=== PATIENT | female | born 1985 | race Caucasian/White ===

== ENCOUNTER → 2023-07-02 | Outpatient (CLI) | payer OTHER ==
--- NOTE | 2023-07-02 11:26 | XR ---
EXAMINATION TYPE: XR chest 2V DATE OF EXAM: 07/02/2023 11:21 AM COMPARISON: CT chest abdomen pelvis 02/17/2015 TECHNIQUE: XR chest 2V Frontal and lateral views of the chest. CLINICAL INDICATION:Female, 38 years old with history of S.O.B.; FINDINGS: Lungs/Pleura: There is no evidence of pleural effusion, focal consolidation, or pneumothorax. Pulmonary vascularity: Unremarkable. Heart/mediastinum: Cardiomediastinal silhouette is unremarkable. Musculoskeletal: No acute osseous pathology. IMPRESSION: No acute cardiopulmonary disease/process.
[2023-07-02 16:34] LABS: % Iron Saturation 49.65 (12.00-45.00); ALT 12 U/L (8-44); AST 14 U/L (13-35); Albumin 4.6 d/dL (3.8-4.9); Albumin/Globulin Ratio 2.09 Ratio (1.60-3.17); Alkaline Phosphatase 58 U/L (41-126); Blood Urea Nitrogen 13.7 mg/dL (9.0-27.0); C Reactive Protein <0.30 mg/dL (0.00-0.80); Calcium 9.6 mg/dL (8.7-10.3); Carbon Dioxide 24.7 mmol/L (21.6-31.8); Chloride 104 mmol/L (96-109); Chol/HDL Ratio 2.35 Ratio; Creatine Kinase 50 U/L (26-186); Ferritin 77.1 ng/mL (10.0-291.0); Globulin 2.2 d/dL (1.6-3.3); Glucose 86 mg/dL (70-110); Iron 143 UG/DL (50-170); LDL Cholesterol,Calculated 82.1 mg/dL (0.0-131.0); Magnesium 2.1 mg/dL (1.5-2.4); Phosphorus 3.2 mg/dL (2.4-5.1); Potassium 4.7 mmol/L (3.5-5.5); Sodium 139 mmol/L (135-145); T4, Free (Free Thyroxine) 1.36 ng/dL (0.80-1.80); Total Bilirubin 0.9 mg/dL (0.3-1.2); Total Iron Binding Capacity 288 UG/DL (228-460); Total Protein 6.8 d/dL (6.2-8.2); Uric Acid 3.9 mg/dL (2.9-7.7); VLDL Calculation 7.36 mg/dL (5.00-40.00)
[2023-07-02 17:13] LABS: Basophils # (A) 0.03 X 10*3/uL (0.00-0.10); Basophils % (A) 0.5 %; Eosinophils # (A) 0.12 X 10*3/uL (0.04-0.35); Eosinophils % (A) 2.1 %; HCT 45.5 % (37.2-46.3); HGB 15.3 d/dL (12.0-15.0); Lymphocytes # (A) 1.47 X 10*3/uL (0.90-5.00); Lymphocytes % (A) 25.2 %; MCH 32.1 pg (27.0-32.0); MCHC 33.6 d/dL (32.0-37.0); MCV 95.6 FL (80.0-97.0); Monocytes # (A) 0.53 X 10*3/uL (0.20-1.00); Monocytes % (A) 9.1 %; NRBC Per 100 WBC 0 X 10*3/uL (0.00-0.01); Neutrophils # (A) 3.66 X 10*3/uL (1.80-7.70); Neutrophils % (A) 62.8 %; Platelet Count 296 X 10*3/uL (140-440); RBC 4.76 X 10*6/uL (4.10-5.20); RDW 12.6 % (11.5-14.5); WBC 5.83 X 10*3/uL (4.50-10.00)
[2023-07-02 17:38] LABS: Erythrocyte Sedimentation Rate 5 mm/Hr (0-20)
[2023-07-02 18:39] LABS: Thyroid Peroxidase Antibodies <9.0 U/mL (0.0-33.0)
== END | disposition home or self-care (01) ==
LOC: LABWHC1 10:57
PROVIDERS: ATTEND Internal Medicine
DX: Z00.00 Encounter for general adult medical examination without abnormal findings (principal); D64.9 Anemia, unspecified; J44.9 Chronic obstructive pulmonary disease, unspecified; E78.5 Hyperlipidemia, unspecified; E03.9 Hypothyroidism, unspecified; E55.9 Vitamin D deficiency, unspecified; R06.02 Shortness of breath
CPT/HCPCS: 36415; 71046; 80053; 80061; 82306; 82550; 82728; 83540; 83550; 83735; 84100; 84432; 84439; 84443; 84550; 85025; 85652; 86140; 86376

== ENCOUNTER 2024-07-30 10:16 | Emergency (ER) | payer BC, OTHER ==
[2024-07-30] MEDS: PROPARACAINE 0.5% OPHTH DROPS 15 ML BTL RIGHT EYE STA (11:00)
[2024-07-30] MEDS: FLUORESCEIN STRIPS 1 MG STRIP RIGHT EYE ONE (11:00)
[2024-07-30] MEDS: TOBRAMYCIN 0.3% OPHTH DROPS 5 ML BTL RIGHT EYE STA (11:45)
--- NOTE | 2024-07-30 12:01 | ED ---
Eye Problem HPI - General Chief complaint: Eye Problems Stated complaint: Eye issues Time Seen by Provider: 07/30/24 11:30 Source: patient, RN notes reviewed Mode of arrival: ambulatory Limitations: no limitations - History of Present Illness Initial comments: 39-year-old female presenting to the ER with a chief complaint of right vision defects. Patient states this morning she went to put in her contacts and started to see a haziness over her right eye. She attempted to take out her contact and rinse her eye with saline and water. She states afterwards in her eye that haziness was worse. She does report during irrigating her eyes there was a burning sensation and feels as if there is a foreign body in her right eye. 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 She denies any known injuries or traumas. No other injuries or complaints. - Related Data Home Medications Medication Instructions Recorded Confirmed Cephalexin [Keflex] 500 mg PO TID 05/20/16 05/20/16 Pnv,Calcium 72/Iron/Folic Acid 1 tab PO DAILY 05/20/16 05/20/16 [ Plus Tablet] Previous Rx's Medication Instructions Recorded Acetaminophen-Codeine 300-30mg 2 tab PO Q6H PRN #30 tablet 05/22/16 [Tylenol #3] Allergies Allergy/AdvReac Type Severity Reaction Status Date / Time No Known Allergies Allergy Verified 07/30/24 10:32 Review of Systems ROS Statement: Those systems with pertinent positive or pertinent negative responses have been documented in the HPI. ROS Other: All systems not noted in ROS Statement are negative. Past Medical History Past Medical History: No Reported History History of Any Multi-Drug Resistant Organisms: None Reported Past Surgical History: No Surgical Hx Reported Past Anesthesia/Blood Transfusion Reactions: No Reported Reaction Past Psychological History: ADD/ADHD Past Alcohol Use History: Occasional Past Drug Use History: None Reported - Past Family History Father Family Medical History: Hyperlipidemia, Hypertension Mother Family Medical History: COPD, Deep Vein Thrombosis (DVT), Hyperlipidemia, Hypertension General Exam Limitations: no limitations General appearance: alert, in no apparent distress Head exam: Present: atraumatic, normocephalic, normal inspection Eye exam: Present: normal appearance, PERRL, EOMI, conjunctival injection (right. There is an abnormality to cornea seen. Abrasion noted during fluorescein stain. OD IOP 14.). Absent: scleral icterus, periorbital swelling Pupils: Present: normal accommodation ENT exam: Present: normal exam, mucous membranes moist Respiratory exam: Present: normal lung sounds bilaterally. Absent: respiratory distress, wheezes, rales, rhonchi, stridor Cardiovascular Exam: Present: regular rate, normal rhythm, normal heart sounds. Absent: systolic murmur, diastolic murmur, rubs, gallop, clicks Neurological exam: Present: alert, oriented X3, CN II-XII intact Skin exam: Present: warm, dry, intact, normal color. Absent: rash Course Vital Signs 07/30/24 07/30/24 10:29 12:07 Temperature 98 F 98.0 F Pulse Rate 91 86 Respiratory 16 18 Rate Blood Pressure 118/78 120/76 O2 Sat by Pulse 98 98 Oximetry Medical Decision Making - Medical Decision Making Was pt. sent in by a medical professional or institution (SINTIA Frausto, SALES VICE PRESIDENT, urgent care, hospital, or custodial...) When possible be specific @ -No Did you speak to anyone other than the patient for history (EMS, parent, family, police, friend...)? What history was obtained from this source @ -No Did you review nursing and triage notes (agree or disagree)? Why? @ -I reviewed and agree with nursing and triage notes Were old charts reviewed (outside hosp., previous admission, EMS record, old EKG, old radiological studies, urgent care reports/EKG's, custodial records)? Report findings @ -No old charts were reviewed Differential Diagnosis (chest pain, altered mental status, abdominal pain women, abdominal pain men, vaginal bleeding, weakness, fever, dyspnea, syncope, headache, dizziness, GI bleed, back pain, seizure, CVA, palpatations, mental health, musculoskeletal)? @ -Corneal abrasion, ocular foreign body, hyphema, conjunctivitis, globe rupture, acute angle-closure glaucoma this list is not meant to be all-inclusive EKG interpreted by me (3pts min.). @ -None X-rays interpreted by me (1pt min.). @ -None done CT interpreted by me (1pt min.). @ -None done U/S interpreted by me (1pt. min.). @ -None done What testing was considered but not performed or refused? (CT, X-rays, U/S, labs)? Why? @ -None What meds were considered but not given or refused? Why? @ -None Did you discuss the management of the patient with other professionals (professionals i.e. , PA, SALES VICE PRESIDENT, lab, RT, psych nurse, social and political studies professor, electrical tech/project manager, teacher, life science technical officer, community case manager)? Give summary @ -No Was smoking cessation discussed for >3mins.? @ -No Was critical care preformed (if so, how long)? @ -No Were there social determinants of health that impacted care today? How? (Homelessness, low income, unemployed, alcoholism, drug addiction, transportation, low edu. Level, literacy, decrease access to med. care, group home, rehab)? @ -No Was there de-escalation of care discussed even if they declined (Discuss DNR or withdrawal of care, Hospice)? DNR status @ -No What co-morbidities impacted this encounter? (DM, HTN, Smoking, COPD, CAD, Cancer, CVA, ARF, Chemo, Hep., AIDS, mental health diagnosis, sleep apnea, morbid obesity)? @ -None Was patient admitted / discharged? Hospital course, mention meds given and route, prescriptions, significant lab abnormalities, going to OR and other pertinent info. @ -Discharge. 39 year old female presenting to the ER with a chief complaint of right eye irritation. History and physical exam completed. Vitals stable. Pat ient in no signs of acute distress but is tearful and anxious on exam. Patient does report she is blind in her left eye. Exam remarkable for right conjunctival injection with an abnormality seen over cornea. No foreign body noted on lid eversion. Fluorescein stain showing corneal abrasion. OD IOP 14. OD visual acuity 20/200. Decreased visual acuity believed to be due to corneal abrasion as it is large involving lateral aspect of pupil. Patient will be started on Tobrex eyedrops. Instructed her to place 2 drops in right eye every 6 hours for 5 days. Tetanus is up-to-date, per patient. I advised her to not wear contact lenses until abrasion heals. I also advise close follow-up with ophthalmology, referral given. Strict return parameters discussed. Patient discharged in stable condition. Patient verbally expressed understanding and agreement with care plan. Case with ED attending . Undiagnosed new problem with uncertain prognosis? @ -No Drug Therapy requiring intensive monitoring for toxicity (Heparin, Nitro, Insulin, Cardizem)? @ -No Were any procedures done? @ -No Diagnosis/symptom? @ -Corneal abrasion Acute, or Chronic, or Acute on Chronic? @ -Acute Uncomplicated (without systemic symptoms) or Complicated (systemic symptoms)? @ -Uncomplicated Side effects of treatment? @ -No Exacerbation, Progression, or Severe Exacerbation? @ -No Poses a threat to life or bodily function? How? (Chest pain, [place], [place], pneumonia, PE, COPD, DKA, ARF, appy, cholecystitis, CVA, Diverticulitis, Homicidal, Suicidal, threat to staff... and all critical care pts) @ -No Disposition Clinical Impression: Corneal abrasion Disposition: HOME SELF-CARE Condition: Stable Instructions (If sedation given, give patient instructions): Eye Foreign Body (ED) Additional Instructions: Use Tobrex eyedrops 2 drops every 6 hours for 5 days. Follow-up with ophthalmology tomorrow. Return to the ER for any new or worsening concerns. Is patient prescribed a controlled substance at d/c from ED?: No Referrals: Ryan Marrero MD [Primary Care Provider] - 1-2 days Roshni John MD [STAFF PHYSICIAN] - 1-2 days Time of Disposition: 12:01
[2024-07-30 12:09] VITALS: BP 120/76; PULSE 86; RESP 18; TEMP 98
== END 2024-07-30 12:10 | disposition home or self-care (01) ==
LOC: EC 10:16
CPT/HCPCS: 99283